=== PATIENT | female | born 1995 | race Caucasian/White ===

== ENCOUNTER 2017-06-14 17:17 | Emergency (ER) | payer OTHER ==
[~2017-06-14] VITALS: Ht 160 cm; Wt 80.0 kg
[2017-06-14] MEDS ORDERED: SODIUM CHLORIDE 0.9% 1,000 ML IV ONE (19:58)
[2017-06-14 20:34] LABS: BASOPHILS % 0.2 % (0.0-2.0); EOSINOPHILS % 0.5 % (0.0-5.0); HEMATOCRIT. 40.2 % (36.0-48.0); HEMOGLOBIN. 13.6 g/dL (12.0-16.0); LYMPHOCYTES % 28.6 % (20.0-50.0); MEAN CORPUSCULAR HEMOGLOBIN 29.3 pg (28.0-32.0); MEAN CORPUSCULAR VOLUME 86.5 fL (81.0-99.0); MEAN PLATELET VOLUME 7.3 fl (7.4-10.4); MONOCYTES % 6.9 % (2.0-8.0); NEUTROPHILS % 63.8 % (40.0-76.0); PLATELET 363 x1000/uL (130-400); RED BLOOD CELL COUNT 4.65 mill/uL (4.2-5.4); RED CELL DISTRIBUTION WIDTH 12.9 % (11.6-14.6)
[2017-06-14 20:40] LABS: CHLORIDE 106 mEq/L (98-107)
[2017-06-14 20:43] LABS: HCG SCREEN NEGATIVE
[2017-06-14 20:46] LABS: D-DIMER 0.24 mg/L FEU (<0.50); PARTIAL THROMBOPLASTIN TIME 27.3 sec (23.4-31.0); PROTHROMBIN TIME 10.6 sec (9.4-11.6)
[2017-06-14 20:49] LABS: CREATINE KINASE 58 IU/L (26-192)
[2017-06-15 01:23] VITALS: BP 127/80
== END 2017-06-15 01:30 | disposition home or self-care (01) ==
LOC: ER 18:16
DX: E86.0 Dehydration (principal); R55 Syncope and collapse
CPT/HCPCS: 36415; 70450; 80053; 82550; 83690; 84443; 84484; 84703; 85025; 85379; 85610; 85730; 93005; 96360; 96361; 99285; J7030; Z7610

== ENCOUNTER 2021-12-05 06:39 | Emergency (ER) | payer OTHER ==
[~2021-12-05] VITALS: Ht 167.6 cm; Wt 79.0 kg
[2021-12-05 06:41] VITALS: BP 144/90
[2021-12-05 07:32] LABS: BASOPHILS % 0.2 % (0.0-2.0); EOSINOPHILS % 0.4 % (0.0-5.0); HEMATOCRIT. 36.5 % (36.0-48.0); HEMOGLOBIN. 12.5 g/dL (12.0-16.0); LYMPHOCYTES % 23.9 % (20.0-50.0); MEAN CORPUSCULAR HEMOGLOBIN 30.4 pg (28.0-32.0); MEAN CORPUSCULAR VOLUME 88.5 fL (81.0-99.0); MEAN PLATELET VOLUME 7.2 fl (7.4-10.4); MONOCYTES % 6.6 % (2.0-8.0); NEUTROPHILS % 68.9 % (40.0-76.0); PLATELET 390 x1000/uL (130-400); RED BLOOD CELL COUNT 4.12 mill/uL (4.2-5.4)
[2021-12-05 07:33] LABS: CHLORIDE 106 mEq/L (98-107)
[2021-12-05 07:37] LABS: CLARITY URINE CLEAR (CLEAR); COLOR URINE YELLOW (YELLOW); KETONES URINE TRACE (NEGATIVE); LEUKOCYTE ESTERASE URINE NEGATIVE (NEGATIVE); NITRITE URINE NEGATIVE (NEGATIVE); OCCULT BLOOD URINE NEGATIVE (NEGATIVE); PROTEIN URINE NEGATIVE (NEGATIVE); SPECIFIC GRAVITY URINE 1.005 (1.005-1.030); UROBILINOGEN URINE 0.2 E.U./dL (0.2-1.0)
[2021-12-05 07:40] LABS: HCG SCREEN NEGATIVE
[2021-12-05 07:44] LABS: ETHANOL BLOOD < 10 mg/dL
== END 2021-12-05 09:12 | disposition home or self-care (01) ==
LOC: ER 06:39
DX: R06.02 Shortness of breath (principal); R00.2 Palpitations; F32.9 Major depressive disorder, single episode, unspecified
CPT/HCPCS: 36415; 71045; 80053; 80320; 81003; 81025; 83880; 84484; 84703; 85025; 93005; 99285; G0480

== ENCOUNTER 2022-02-06 09:46 | Emergency (ER) | payer OTHER ==
[~2022-02-06] VITALS: Ht 165.1 cm; Wt 64.0 kg
[2022-02-06] MEDS ORDERED: DEXAMETHASONE 4MG/ML 1ML VIAL IM SCH (11:00)
[2022-02-06] MEDS ORDERED: KETOROLAC 30MG/ML VIAL IM ONE (11:00)
[2022-02-06] MEDS ORDERED: ONDANSETRON 4MG ODT PO ONE (11:00)
[2022-02-06 11:24] VITALS: BP 111/81
[2022-02-06] MEDS ORDERED: NAPR-1176 MT (13:14)
[2022-02-06] MEDS ORDERED: CYCL5TAB MT (13:14)
== END 2022-02-06 14:05 | disposition home or self-care (01) ==
LOC: ER 09:46
DX: M54.50 Low back pain, unspecified (principal); R11.2 Nausea with vomiting, unspecified; F12.10 Cannabis abuse, uncomplicated; F32.9 Major depressive disorder, single episode, unspecified
CPT/HCPCS: 72148; 81025; 96372; 99284; J1100; J1885; Q0162